=== PATIENT | female | born 1955 | race African-American/Black ===

== ENCOUNTER 2024-08-21 00:01 | Emergency (ER) | payer MEDICAID, OTHER ==
[~2024-08-21] VITALS: Ht 157.5 cm; Wt 46.0 kg
[~2024-08-21 00:01] MED LIST: ACET1TAB14; CARI-518
[2024-08-21 00:03] VITALS: TEMP 36.8; O2SAT 100
[2024-08-21] MEDS: HYDROCODONE/ACETAMINOPHEN 5/325MG TABLET PO ONE (01:25)
[2024-08-21 03:30] VITALS: BP 157/84; PULSE 83; RESP 12; O2SAT 98
== END 2024-08-21 03:44 | disposition home or self-care (01) ==
LOC: ER 00:36
DX: F43.0 Acute stress reaction (principal); G89.29 Other chronic pain; M54.9 Dorsalgia, unspecified; F17.200 Nicotine dependence, unspecified, uncomplicated; J44.89 Other specified chronic obstructive pulmonary disease; I10 Essential (primary) hypertension
CPT/HCPCS: 71045; 93005; 99283